=== PATIENT | male | born 1975 | race Hispanic/Latino ===

== ENCOUNTER 2022-04-16 15:30 | Emergency (ER) | payer SELFPAY ==
[~2022-04-16] VITALS: Ht 170.2 cm; Wt 81.6 kg
[2022-04-16] MEDS ORDERED: HYDROCODONE/APAP 5MG-325MG TAB PO PRN (15:45)
[2022-04-16] MEDS ORDERED: HYDROCODONE/APAP 10MG-325MG TAB PO ONE (15:45)
[2022-04-16] MEDS ORDERED: HYDROCODONE/APAP 10MG-325MG TAB ONE (15:53)
[2022-04-16] MEDS ORDERED: ACETAMINOPHEN-1 EAC4 PO ×2 (17:27→18:04)
== END 2022-04-16 18:05 | disposition home or self-care (01) ==
LOC: ER 15:37
DX: M25.532 Pain in left wrist (principal); S52.592A Other fractures of lower end of left radius, initial encounter for closed fracture; W11.XXXA Fall on and from ladder, initial encounter; Y99.0 Civilian activity done for income or pay
CPT/HCPCS: 99284